=== PATIENT | male | born 1985 | race Two or more races ===

== ENCOUNTER 2017-11-15 18:46 | Inpatient (IN) | payer MEDICARE, OTHER ==
[2017-11-15] MEDS ORDERED: ONDANSETRON *ODT* 4 MG TABLET SL ONE (19:05)
--- NOTE | 2017-11-15 19:07 | PDOC ---
Rapid Medical Evaluation Chief Complaint: Pain Time Seen by Provider: 11/15/17 18:59 Medical Evaluation: 11/15/17 19:03 Pt presents for upper abdominal pain starting at 12 pm today. Unable to keep anything down. Exam: Pt appears uncomfortable. Epigastric tenderness Orders: Labs, Urine, IV, Zofran Pt to proceed to ED for further evaluation Discharge Disposition - Diagnosis Abdominal pain - Referrals - Patient Instructions - Post Discharge Activity
[2017-11-15] MEDS ORDERED: ONDANSETRON 4 MG/2 ML VIAL IVPUSH ONE (20:30)
[2017-11-15] MEDS ORDERED: SODIUM CHLORIDE 1,000 ML IV STA ×2 (20:30→21:40)
[2017-11-15] MEDS ORDERED: ACETAMINOPHEN 1000 MG/100 ML VIAL (NON FORMULARY) IVPB ONE (20:30)
[2017-11-15] MEDS ORDERED: ACETAMINOPHEN INJECTION 100 ML IVPB ONE (20:41)
[2017-11-15 20:49] LABS: BASO % 0.5 % (0-2.0); EOS % 0.4 % (0-4.5); HEMATOCRIT 41.6 % (35.4-49); HEMOGLOBIN 14.1 GM/dL (11.7-16.9); LYMPH % 9.9 % (8-40); MCH 28.4 pg (25.7-33.7); MEAN CELL VOLUME 83.4 fl (80-96); MEAN PLT VOLUME 8.7 fl (7.5-11.1); MONO % 4.7 % (3.8-10.2); NEUT % 84.5 % (42.8-82.8); PLATELET COUNT 236 K/MM3 (134-434); RBC 4.98 M/mm3 (4.00-5.60); RDW 13.5 % (11.9-15.9)
[2017-11-15] MEDS ORDERED: ONDANSETRON 4 MG/2 ML VIAL ONE (20:59)
--- NOTE | 2017-11-15 21:06 | PDOC ---
History of Present Illness - General History Source: Patient Exam Limitations: No Limitations - History of Present Illness Initial Comments: 11/15/17 21:20 The patient is a 32 year old male, with a significant past medical history of hypertension (lisinopril 15 mg), who presents to the emergency department with sharp, epigastric pain since 2PM. He states the pain is 10/10 with increase in severity now. He denies any exacerbating or alleviating factors to his abdominal pain. He states he has been vomiting after drinking or eating today. He reports his emesis is now clear/white since he stopped eating when the vomiting started. The patient denies chest pain, shortness of breath, headache and dizziness. The patient denies fever, chills, diarrhea and constipation. The patient denies dysuria, frequency, urgency and hematuria. Allergies: NKDA Past surgical history: none reported Social history: Pt denies illicit drug use <Denise Dowell - Last Filed: 11/16/17 00:20> - General History Source: Patient Exam Limitations: No Limitations <Susie Olsen - Last Filed: 11/16/17 03:43> - General Chief Complaint: Pain Stated Complaint: NAUSEA/VOMITING Time Seen by Provider: 11/15/17 18:59 Past History <Denise Dowell - Last Filed: 11/16/17 00:20> - Past Medical History COPD: No HTN: Yes - Suicide/Smoking/Psychosocial Hx Smoking History: Never smoked Have you smoked in the past 12 months: No Information on smoking cessation initiated: No Hx Alcohol Use: No Drug/Substance Use Hx: No Substance Use Type: None <Susie Olsen - Last Filed: 11/16/17 03:43> - Past Medical History Allergies/Adverse Reactions: Allergies Allergy/AdvReac Type Severity Reaction Status Date / Time No Known Allergies Allergy Verified 11/15/17 20:29 Home Medications: Ambulatory Orders Lisinopril 15 mg PO DAILY 11/15/17 Review of Systems - Review of Systems Comments:: 11/15/17 21:21 CONSTITUTIONAL: Absent: fever, chills, fatigue EYES: Absent: visual changes ENT: Absent: ear pain, sore throat CARDIOVASCULAR: Absent: chest pain, palpitations RESPIRATORY: Absent: cough, SOB GASTROINTESTINAL: (+) epigastric abdominal pain, nausea, vomiting, Absent: constipation, diarrhea GENITOURINARY: Absent: dysuria, frequency, hematuria MUSCULOSKELETAL: Absent: back pain, arthralgia, myalgia SKIN: Absent: rash NEURO: Absent: headache <Denise Dowell - Last Filed: 11/16/17 00:20> *Physical Exam - Vital Signs Last Vital Signs Temp Pulse Resp BP Pulse Ox 98.0 F 76 18 157/95 100 11/15/17 19:02 11/15/17 19:02 11/15/17 19:02 11/15/17 19:02 11/15/17 19:02 - Physical Exam Comments: 11/15/17 21:21 GENERAL: The patient is in no acute distress. HEAD: Normal with no signs of trauma. EYES: PERRLA, EOMI, sclera anicteric, conjunctiva clear. ENT: Ears normal, nares patent, oropharynx clear without exudates. Moist mucous membranes. NECK: Normal range of motion, supple without lymphadenopathy, JVD, or masses. LUNGS: Breath sounds equal, clear to auscultation bilaterally. No wheezes, and no crackles. HEART:Regular rate and rhythm, normal S1 and S2 without murmur, rub or gallop. ABDOMEN: (+) epigastric tenderness. Soft, normoactive bowel sounds. No guarding , no rebound. No masses palpable. EXTREMITIES: Normal range of motion, no edema. No clubbing or cyanosis. No erythema, or tenderness. NEUROLOGICAL: Cranial nerves II through XII grossly intact. Normal speech. No focal neurological deficits. MUSCULOSKELETAL: Back non-tender to palpation, no CVA tenderness SKIN: Warm, Dry, normal turgor, no rashes or lesions noted. <Denise Dowell - Last Filed: 11/16/17 00:20> - Vital Signs Last Vital Signs Temp Pulse Resp BP Pulse Ox 98.0 F 76 18 157/95 100 11/15/17 19:02 11/15/17 19:02 11/15/17 19:02 11/15/17 19:02 11/15/17 19:02 <Susie Olsen - Last Filed: 11/16/17 03:43> ED Treatment Course - LABORATORY CBC & Chemistry Diagram: 11/15/17 20:35 11/15/17 20:35 - ADDITIONAL ORDERS Additional order review: Laboratory Results 11/15/17 11/15/17 11/15/17 20:35 20:35 20:35 PT with INR 11.10 INR 0.98 Sodium 138 Potassium 4.4 Chloride 103 Carbon Dioxide 25 Anion Gap 10 BUN 12 Creatinine 1.2 Creat Clearance w eGFR > 60 Random Glucose 121 H Calcium 9.6 Total Bilirubin 0.5 AST 21 ALT 27 Alkaline Phosphatase 56 Total Protein 8.2 Albumin 4.8 Lipase 117 11/15/17 20:35 RBC 4.98 MCV 83.4 MCHC 34.0 RDW 13.5 MPV 8.7 Neutrophils % 84.5 H Lymphocytes % 9.9 Monocytes % 4.7 Eosinophils % 0.4 Basophils % 0.5 - RADIOLOGY Radiograph Interpretation: EXAM: CT abdomen and pelvis with IV contrast. Clinical indication: Severe abdominal pain. Findings: Visualized portions of the lower thorax are within normal limits. There is no free intra-abdominal gas or fluid. The liver, gallbladder, adrenals, pancreas, and spleen are normal. There is no hydronephrosis or renal calculi bilaterally. The bilateral kidneys are normal. There are no enlarged abdominal or pelvic lymph nodes, by size criteria. The urinary bladder is not overly distended, but grossly unremarkable. There is a phlebolith at the origin of the appendix and within the midportion of the appendix. Thereis some subtle periappendiceal inflammatory changes suggesting very early acute uncomplicated appendicitis. There is some mild bowel wall thickening involving the gastric antrum extending into the first portion of the duodenum which could represent some distal gastritis/proximal duodenitis. The remainder of the bowel is unremarkable. The visualized bony structures are within normal limits for the patient's age. Impression: 1. Findings suggest very early uncomplicated acute appendicitis, as described above. 2. Mild circumferential bowel wall thickening involving the gastric antrum extending into the first portion of the duodenum, which could represent some distal gastritis/proximal duodenitis. Clinical correlation is recommended. 3. Otherwise, unremarkable CT of the abdomen and pelvis. Kal Herr MD 11/15/2017 23:03 EST - Medications Given in the ED: ED Medications Discontinued Medications Generic Name Dose Route Start Last Admin Trade Name Freq PRN Reason Stop Dose Admin Acetaminophen 1,000 mg 11/15/17 20:30 11/15/17 20:49 Ofirmev Injection - IVPB 11/15/17 20:31 1,000 mg ONCE ONE Administration Ondansetron HCl 4 mg 11/15/17 20:30 11/15/17 21:02 Zofran Injection IVPUSH 11/15/17 20:31 4 mg ONCE ONE Administration <DelmerDenise - Last Filed: 11/16/17 00:20> - LABORATORY CBC & Chemistry Diagram: 11/15/17 20:35 11/15/17 20:35 - ADDITIONAL ORDERS Additional order review: 11/15/17 20:35 RBC 4.98 MCV 83.4 MCHC 34.0 RDW 13.5 MPV 8.7 Neutrophils % 84.5 H Lymphocytes % 9.9 Monocytes % 4.7 Eosinophils % 0.4 Basophils % 0.5 - Medications Given in the ED: ED Medications Discontinued Medications Generic Name Dose Route Start Last Admin Trade Name Harika PRN Reason Stop Dose Admin Acetaminophen 1,000 mg 11/15/17 20:30 11/15/17 20:49 Ofirmev Injection - IVPB 11/15/17 20:31 1,000 mg ONCE ONE Administration Ondansetron HCl 4 mg 11/15/17 20:30 11/15/17 21:02 Zofran Injection IVPUSH 11/15/17 20:31 4 mg ONCE ONE Administration <Susie Olsen - Last Filed: 11/16/17 03:43> Medical Decision Making - Medical Decision Making 32 yo M presenting to the ER with a complaint of severe epigastric pain No prior episodes like this No nausea or vomiting No diarrhea No prior abdominal surgeries DD: Gastritis, pancreatitis, SBO, Appendicitis EKG: Twelve-lead EKG was performed and reviewed by me. There is normal sinus rhythm with a normal rate of 60 bpm. The axis is normal. The intervals are normal. There are no ST or T wave abnormalities. Impression: Normal twelve-lead EKG 11/15/17 21:06 Laboratory Tests 11/15/17 20:35 WBC 8.0 Hgb 14.1 Hct 41.6 Plt Count 236 11/15/17 21:15 Laboratory Tests 11/15/17 11/15/17 11/15/17 20:35 20:35 20:35 INR 0.98 Sodium 138 Potassium 4.4 Chloride 103 Carbon Dioxide 25 Anion Gap 10 BUN 12 Creatinine 1.2 Random Glucose 121 H Lipase 117 11/16/17 00:28 CT demonstrates very early uncomplicated acute appendicitis 11/16/17 00:[address] Pacheco Will admit to hospitalist Will give Zosyn Clinical Impression: Acute Appendicitis, initial presentation 11/16/17 03:41 11/16/17 03:41 <Susie Olsen - Last Filed: 11/16/17 03:43> *DC/Admit/Observation/Transfer - Attestations Scribe Attestion: 11/15/17 21:22 Documentation prepared by Denise Dowell, acting as biomedical engineering professor for Susie Olsen MD <Denise Dowell - Last Filed: 11/16/17 00:20> - Discharge Dispostion Decision to Admit order: Yes <Susie Olsen - Last Filed: 11/16/17 03:43> Diagnosis at time of Disposition: Acute appendicitis Qualifiers: Acute appendicitis type: unspecified acute appendicitis type Qualified Code(s) : K35.80 - Unspecified acute appendicitis - Discharge Dispostion Condition at time of disposition: Stable
[2017-11-15 21:07] LABS: INR 0.98 (0.83-1.09); PROTHROMBIN TIME (PATIENT) 11.1 SEC (9.7-13.0)
[2017-11-15 21:10] LABS: ALBUMIN 4.8 g/dl (3.4-5.0); ALK PHOS 56 U/L (45-117); ANION GAP 10 MMOL/L (8-16); BILIRUBIN,TOTAL 0.5 mg/dL (0.2-1.0); BLOOD UREA NITROGEN 12 mg/dL (7-18); CALCIUM 9.6 mg/dL (8.5-10.1); CHLORIDE 103 mmol/L (98-107); CO2 25 mmol/L (21-32); CREATININE 1.2 mg/dL (0.7-1.3); GLUCOSE,RANDOM 121 mg/dL (74-106); SGPT/ALT 27 U/L (12-78); SODIUM 138 mmol/L (136-145); TOT PROT 8.2 g/dl (6.4-8.2)
[2017-11-15 21:13] LABS: POTASSIUM 4.4 mmol/L (3.5-5.1); SGOT/AST 21 U/L (15-37)
[2017-11-15] MEDS ORDERED: morphine CARPU-JECT 4 MG/1 ML DISP.SYRIN IVPUSH ONE ×2 (21:16→22:27)
[2017-11-15] MEDS ORDERED: FAMOTIDINE 20 MG/50 ML IVPB 20 MG/50 ML MG IVPB ONE ×2 (21:16→21:30)
[2017-11-15] MEDS ORDERED: DICYCLOMINE HCL 10 MG CAPSULE PO ONE (21:16)
[2017-11-15] MEDS ORDERED: morphine SULFATE 4 MG/ML VIAL ONE (21:30)
[2017-11-15] MEDS ORDERED: DICYCLOMINE HCL 10 MG CAPSULE ONE (21:30)
[2017-11-15] MEDS ORDERED: METOCLOPRAMIDE HCL INJECTION 10 MG/2 ML VIAL IVPUSH ONE (21:40)
[2017-11-15] MEDS ORDERED: METOCLOPRAMIDE HCL INJECTION 10 MG/2 ML VIAL ONE (22:36)
[2017-11-15] MEDS ORDERED: MORPHINE SULFATE 2 MG/ML VIAL ONE (22:37)
[2017-11-15 23:40] LABS: URINE APPEARANCE CLEAR; URINE BILIRUBIN NEGATIVE (<2.0 mg/dL); URINE COLOR YELLOW; URINE GLUCOSE (UA) NEGATIVE (NEGATIVE); URINE KETONE 2+ (NEGATIVE); URINE LEUK ESTERASE NEGATIVE (NEGATIVE); URINE NITRITE NEGATIVE (NEGATIVE); URINE PROTEIN NEGATIVE (NEGATIVE); URINE UROBILINOGEN NEGATIVE mg/dL (0.2-1.0)
[2017-11-16] MEDS ORDERED: PIPERACILLIN/TAZOB 4.5 GM 4.5 GM in DEXTROSE 5%-WATER 100 ML IVPB ONE (00:28)
[2017-11-16] MEDS ORDERED: PIPERACILLIN/TAZOB 4.5 GM 4.5 GM/100 ML BAG IVPB ONE (01:06)
--- NOTE | 2017-11-16 02:11 | PN ---
Teaching Attending Note Name of Resident: Gladis Singer ATTENDING PHYSICIAN STATEMENT I saw and evaluated the patient. I reviewed the resident's note and discussed the case with the resident. I agree with the resident's findings and plan as documented. SUBJECTIVE: Patient is a 32 year old man, with a medical history of hypertension and tobacco use, who presents to the ER with sharp, epigastric pain since 2PM. He states the pain is 10/10 with increase in severity now. He denies any exacerbating or alleviating factors to his abdominal pain. He states he has been vomiting after drinking or eating today. He reports his emesis is now clear /white since he stopped eating when the vomiting started. OBJECTIVE: Alert Vital Signs Period Temp Pulse Resp BP Sys/Nicole Pulse Ox Last 24 Hr 98.0 F 76 18 157/95 100 HEENT: No Jaundice, eye redness or discharge, PERRLA, EOMI. Normocephalic, atraumatic. External ears are normal and hearing is grossly intact. No nasal discharge. Neck: Supple, nontender. No palpable adenopathy or thyromegaly. No JVD Chest: Good effort. Clear to auscultation and percussion. Heart: Regular. No S3, rub or murmur Abdomen: Not distended, soft, lower abdominal tenderness and no HSM. No rebound or guarding. Normoactive bowel sounds. Ext: Peripheral pulses intact. No leg edema. Skin: Warm and dry. No petechiae, rash or ecchymosis. Neuro: Alert. Oriented x3. CN 2-12 grossly intact. Sensation grossly intact in all four extremities and DTR are symmetric. Current Medications Generic Name Dose Route Start Last Admin Trade Name Harika PRN Reason Stop Dose Admin Nicotine 21 mg 11/16/17 10:00 Nicoderm Patch - TD DAILY RAMON Home Medications Medication Instructions Recorded Lisinopril 15 mg PO DAILY 11/15/17 Abnormal Lab Results 11/15/17 11/15/17 11/15/17 20:35 20:35 22:00 Neutrophils % 84.5 H Random Glucose 121 H Urine Ketones 2+ H ASSESSMENT AND PLAN: 1. Appendicitis - CT scan findings consistent with appendicitis. Getting Zosyn IV and morphine for pain control pending surgery. Surgery consulted. Will adjust BP medications to Lisinopril 10 mg po BID and HCTZ 12.5 mg po qd. Urged to reduce dietary salt intake, execise and loose weight. Get HbA1c. 2. Tobacco Use We will provide patient all the necessary assistance to facilitate smoking cessation and prescribe Nicotine patch. 3. DVT prophylaxis - Lovenox 40 mg SQ q 24 hours. 4. Advance directives - Full code
--- NOTE | 2017-11-16 02:44 | HP ---
CHIEF COMPLAINT:abdominal and epigastric pain PCP: HISTORY OF PRESENT ILLNESS: 32 y/o male with PMH of HTN presents to the ED with diffuse abdominal and epigastric pain. Patient states the pain started around 12 and it is 10/10. He has had multiple episodes of vomiting however not having any diarrhea nor does he have any fevers. He did not try to take anything for pain. ER course was notable for: (1)CT ab/pelvos showed phlebolith at oriign of appendix and midportion of appendix suggesting early acute appendicitis (2) pt received zosyn for abx coverage and morphine for pain (3) Recent Travel: patient recently came back from [place] PAST MEDICAL HISTORY: HTN PAST SURGICAL HISTORY: none Social History: Smokinppd X12 years Alcohol:social drinker 1-2 drinks on weekend Drugs: none Family History: Allergies No Known Allergies Allergy (Verified 11/15/17 20:29) HOME MEDICATIONS: Home Medications Medication Instructions Recorded Lisinopril 15 mg PO DAILY 11/15/17 REVIEW OF SYSTEMS CONSTITUTIONAL: Absent: fever, chills, diaphoresis, generalized weakness, malaise, loss of appetite, weight change HEENT: Absent: rhinorrhea, nasal congestion, throat pain, throat swelling, difficulty swallowing, mouth swelling, ear pain, eye pain, visual changes CARDIOVASCULAR: Absent: chest pain, syncope, palpitations, irregular heart rate, lightheadedness , peripheral edema RESPIRATORY: Absent: cough, shortness of breath, dyspnea with exertion, orthopnea, wheezing, stridor, hemoptysis GASTROINTESTINAL: Present:nausea, vomiting,abdominal pain Absent: abdominal distension, diarrhea , constipation, melena, hematochezia GENITOURINARY: Absent: dysuria, frequency, urgency, hesitancy, hematuria, flank pain, genital pain MUSCULOSKELETAL: Absent: myalgia, arthralgia, joint swelling, back pain, neck pain SKIN: Absent: rash, itching, pallor HEMATOLOGIC/IMMUNOLOGIC: Absent: easy bleeding, easy bruising, lymphadenopathy, frequent infections ENDOCRINE: Absent: unexplained weight gain, unexplained weight loss, heat intolerance, cold intolerance NEUROLOGIC: Absent: headache, focal weakness or paresthesias, dizziness, unsteady gait, seizure, mental status changes, bladder or bowel incontinence PSYCHIATRIC: Absent: anxiety, depression, suicidal or homicidal ideation, hallucinations. PHYSICAL EXAMINATION Vital Signs - 24 hr 11/15/17 19:02 Temperature 98.0 F Pulse Rate 76 Respiratory 18 Rate Blood Pressure 157/95 O2 Sat by Pulse 100 Oximetry (%) GENERAL: Awake, alert, and fully oriented, in no acute distress. NECK: no JVD LUNGS: Breath sounds equal, clear to auscultation bilaterally. No wheezes, and no crackles. No accessory muscle use. HEART: Regular rate and rhythm, normal S1 and S2 without murmur, rub or gallop. ABDOMEN: Soft, slight tenderness in epigastric region MUSCULOSKELETAL: Normal range of motion at all joints. No bony deformities or tenderness. No CVA tenderness. EXTREMITIES: warm; well-perfused, no clubbing/cyanosis/edema NEUROLOGICAL: Cranial nerves II-XII intact. Normal speech. Normal gait. PSYCHIATRIC: Cooperative. Good eye contact. Appropriate mood and affect. SKIN: Warm, dry, normal turgor, no rashes or lesions noted, normal capillary refill. Laboratory Results - last 24 hr 11/15/17 11/15/17 11/15/17 20:35 20:35 20:35 WBC 8.0 RBC 4.98 Hgb 14.1 Hct 41.6 MCV 83.4 MCH 28.4 MCHC 34.0 RDW 13.5 Plt Count 236 MPV 8.7 Absolute Neuts (auto) 6.7 Neutrophils % 84.5 H Lymphocytes % 9.9 Monocytes % 4.7 Eosinophils % 0.4 Basophils % 0.5 Nucleated RBC % 0 PT with INR 11.10 INR 0.98 Sodium 138 Potassium 4.4 Chloride 103 Carbon Dioxide 25 Anion Gap 10 BUN 12 Creatinine 1.2 Creat Clearance w eGFR > 60 Random Glucose 121 H Calcium 9.6 Total Bilirubin 0.5 AST 21 ALT 27 Alkaline Phosphatase 56 Total Protein 8.2 Albumin 4.8 Lipase Urine Color Urine Appearance Urine pH Ur Specific [place] Urine Protein Urine Glucose (UA) Urine Ketones Urine Blood Urine Nitrite Urine Bilirubin Urine Urobilinogen Ur Leukocyte Esterase 11/15/17 11/15/17 20:35 22:00 WBC RBC Hgb Hct MCV MCH MCHC RDW Plt Count MPV Absolute Neuts (auto) Neutrophils % Lymphocytes % Monocytes % Eosinophils % Basophils % Nucleated RBC % PT with INR INR Sodium Potassium Chloride Carbon Dioxide Anion Gap BUN Creatinine Creat Clearance w eGFR Random Glucose Calcium Total Bilirubin AST ALT Alkaline Phosphatase Total Protein Albumin Lipase 117 Urine Color Yellow Urine Appearance Clear Urine pH 6.0 Ur Specific [place] 1.029 Urine Protein Negative Urine Glucose (UA) Negative Urine Ketones 2+ H Urine Blood Negative Urine Nitrite Negative Urine Bilirubin Negative Urine Urobilinogen Negative Ur Leukocyte Esterase Negative ASSESSMENT/PLAN: 32 y/o male with PMH of HTN presents to the ED with abdominal and epigastric pain found to have early acute appendicitis on CT. #1: Appendicitis: -c/w zosyn for empiric abx coverage -morphine for pain control -surgery has been consulted -NPO for possible surgery? #2: HTN -lisinopril 10mg BID -HCTZ 12.5 daily #3: Smoking Cessation -nicotine patch Problem List - Problem (1) Acute appendicitis Code(s): K35.80 - UNSPECIFIED ACUTE APPENDICITIS Qualifiers: Acute appendicitis type: unspecified acute appendicitis type Qualified Code (s): K35.80 - Unspecified acute appendicitis Visit type - Emergency Visit Emergency Visit: Yes Care time: The patient presented to the Emergency Department on the above date and was hospitalized for further evaluation of their emergent condition. - New Patient This patient is new to me today: Yes Date on this admission: 11/16/17 - Critical Care Critical Care patient: No Hospitalist Screening - Colonoscopy Questionnaire Colonoscopy Questionnaire: Colonoscopy Questionnaire - Patient: 50 - 75 years old and never had a screening colonoscopy: Unknown History of colon or rectal polyps, or CA: Unknown History of IBD, Crohn's disease or UC: Unknown History of abdominal radiation therapy as a child: Unknown - Relative: 1 with colon or rectal CA, or polyps at age 60 or younger: Unknown Colon or rectal CA diagnosed at age 45 or younger: Unknown Multiple relatives with colon or rectal CA: Unknown - Outcome: Screening Result: Negative Screen
[2017-11-16] MEDS ORDERED: PIPERACILLIN/TAZOB 3.375 GM 3.375 GM in DEXTROSE 5%-WATER - 50 ML IVPB ONE (07:00)
[2017-11-16 07:05] LABS: BASO % 0.3 % (0-2.0); EOS % 0.4 % (0-4.5); HEMATOCRIT 39.2 % (35.4-49); HEMOGLOBIN 13.1 GM/dL (11.7-16.9); LYMPH % 18.9 % (8-40); MCH 27.6 pg (25.7-33.7); MCHC 33.3 g/dl (32.0-35.9); MEAN CELL VOLUME 83.1 fl (80-96); MEAN PLT VOLUME 8.6 fl (7.5-11.1); MONO % 10.5 % (3.8-10.2); NEUT % 69.9 % (42.8-82.8); PLATELET COUNT 186 K/MM3 (134-434); RBC 4.72 M/mm3 (4.00-5.60); RDW 13.4 % (11.9-15.9); WHITE BLOOD COUNT 8.4 K/mm3 (4.0-10.0)
[2017-11-16 07:17] LABS: ANION GAP 4 MMOL/L (8-16); BILIRUBIN,TOTAL 0.5 mg/dL (0.2-1.0); BLOOD UREA NITROGEN 7 mg/dL (7-18); CALCIUM 7.5 mg/dL (8.5-10.1); CHLORIDE 109 mmol/L (98-107); CO2 28 mmol/L (21-32); CREATININE 1.1 mg/dL (0.7-1.3); GLUCOSE,RANDOM 100 mg/dL (74-106); MAGNESIUM 2.1 mg/dL (1.8-2.4); PHOSPHOROUS 3.7 mg/dL (2.5-4.9); POTASSIUM 4.6 mmol/L (3.5-5.1); SGOT/AST 12 U/L (15-37); SGPT/ALT 19 U/L (12-78); SODIUM 141 mmol/L (136-145)
[2017-11-16 07:18] LABS: ALK PHOS 43 U/L (45-117); TOT PROT 5.8 g/dl (6.4-8.2)
[2017-11-16] MEDS ORDERED: SODIUM CHLORIDE 1,000 ML IV ONE (07:19)
[2017-11-16] MEDS ORDERED: PIPERACILLIN/TAZOB 3.375 GM 3.375 GM/50 ML BAG IVPB ONE (07:21)
--- NOTE | 2017-11-16 09:59 | CON.ID ---
Consult Consult Specialty:: infectious diseases Referred by:: Reason for Consultation:: appendicitis - History of Present Illness Chief Complaint: abd pain History of Present Illness: This young patient with history of htn coming to the the hospital for abd pain mainly on the right side Patient states the pain started around 12 and it is 10/10. He has had multiple episodes of vomiting however not having any diarrhea nor does he have any fevers. He did not try to take anything for pain. patient was worked up and imaging studies were done and patient was found to ahve appendicitis and is being taken for surgery thgis morning patient mentions that his pain is better now currently patient is stable - History Source History Provided By: Patient Limitations to Obtaining History: No Limitations - Alcohol/Substance Use Hx Alcohol Use: No - Smoking History Smoking history: Never smoked Have you smoked in the past 12 months: No Home Medications - Allergies Allergies/Adverse Reactions: Allergies Allergy/AdvReac Type Severity Reaction Status Date / Time No Known Allergies Allergy Verified 11/15/17 20:29 - Home Medications Home Medications: Ambulatory Orders Lisinopril 15 mg PO DAILY 11/15/17 Review of Systems - Review of Systems Constitutional: reports: No Symptoms Eyes: reports: No Symptoms HENT: reports: No Symptoms Neck: reports: No Symptoms Cardiovascular: reports: No Symptoms Respiratory: reports: No Symptoms Gastrointestinal: reports: Abdominal Pain, Nausea, Vomiting Genitourinary: reports: No Symptoms Musculoskeletal: reports: No Symptoms Integumentary: reports: No Symptoms Neurological: reports: No Symptoms Endocrine: reports: No Symptoms Hematology/Lymphatic: reports: No Symptoms Psychiatric: reports: No Symptoms Physical Exam Vital Signs: Vital Signs Temperature 98 F 11/16/17 06:00 Pulse Rate 67 11/16/17 08:26 Respiratory Rate 20 11/16/17 08:26 Blood Pressure 124/79 11/16/17 08:26 O2 Sat by Pulse Oximetry (%) 100 11/16/17 08:26 Constitutional: Yes: Well Nourished, No Distress, Calm Cardiovascular: Yes: Regular Rate and Rhythm Respiratory: Yes: Regular, CTA Bilaterally Gastrointestinal: Yes: Normal Bowel Sounds, Soft Musculoskeletal: Yes: WNL Extremities: Yes: WNL Neurological: Yes: Alert, Oriented Psychiatric: Yes: Alert, Oriented Labs: CBC, BMP 11/16/17 06:30 11/16/17 06:30 Imaging - Results Chest X-ray: Report Reviewed, Image Reviewed Cat Scan: Report Reviewed, Image Reviewed Assessment/Plan Problem List - Problem (1) Acute appendicitis Code(s): K35.80 - UNSPECIFIED ACUTE APPENDICITIS Qualifiers: Acute appendicitis type: unspecified acute appendicitis type Qualified Code (s): K35.80 - Unspecified acute appendicitis 2 htn plan we will continue zosyn post op will see the findings and then decide further plan continue htn meds rest as per the teams and surgical team
[2017-11-16] MEDS ORDERED: ENOXAPARIN NA (PORCINE) 40 MG/0.4 ML DISP.SYRIN SQ SCH (10:00)
[2017-11-16] MEDS ORDERED: HYDROCHLOROTHIAZIDE 12.5 MG CAPSULE (FP) PO SCH (10:00)
[2017-11-16] MEDS ORDERED: NICOTINE 21 MG/24 HOURS TOPICAL PATCH TD SCH (10:00)
[2017-11-16] MEDS ORDERED: LISINOPRIL 10 MG TABLET (FP) PO SCH (10:00)
[2017-11-16] MEDS ORDERED: PANTOPRAZOLE SODIUM 40 MG VIAL IVPUSH SCH (10:00)
--- NOTE | 2017-11-16 10:30 | EKG ---
Test Reason : Blood Pressure : / mmHG Vent. Rate : 060 BPM Atrial Rate : 060 BPM P-R Int : 144 ms QRS Dur : 102 ms QT Int : 388 ms P-R-T Axes : 069 072 045 degrees QTc Int : 388 ms NORMAL SINUS RHYTHM NORMAL ECG NO PREVIOUS ECGS AVAILABLE Confirmed by AGUSTO BERRIOS, LIZ ([id number]) on 11/16/2017 10:29:34 AM Referred By: Confirmed By:LIZ LIZ MD
--- NOTE | 2017-11-16 10:40 | CONSULT ---
- Consultation REQUESTING PROVIDER: Arianna BERRIOS CONSULT REQUEST: We have been asked to surgically evaluate this patient for ( specify). PCP:Ayleen Keller MD HISTORY OF PRESENT ILLNESS:24-36 hours of epigastric to RLQ pain associated w/n/ v;he has no other GI/ c/o; he came to the ER FOR EVALUATION; pain is sharp and unrelenting; no other hx. PMHx: hypertension PSHx: none Home Medications Medication Instructions Recorded Lisinopril 15 mg PO DAILY 11/15/17 Allergies Allergy/AdvReac Type Severity Reaction Status Date / Time No Known Allergies Allergy Verified 11/15/17 20:29 PHYSICAL EXAM: GENERAL: Awake, alert, and fully oriented, in no acute distress. HEAD: Normal with no signs of trauma. EYES: sclera anicteric, conjunctiva clear. NECK: Normal ROM, supple without lymphadenopathy, JVD, or masses. ABDOMEN: Soft, tender RLQ over McBurneys point; not distended, normoactive bowel sounds, no guarding, no rebound, no masses. No organomegaly. No hernias; psoas and obturators and Rovsings signs are present. MUSCULOSKELETAL: Normal ROM at all joints. No bony deformities or tenderness. No CVA tenderness. UPPER EXTREMITIES: 2+ pulses, warm, well-perfused. No cyanosis. Cap refill <2 seconds. No peripheral edema. LOWER EXTREMITIES: 2+ pulses, warm, well-perfused. No calf tenderness. No peripheral edema. NEUROLOGICAL: Normal speech, gait not observed. PSYCH: Cooperative. Good eye contact. Appropriate mood and affect. SKIN: Warm, dry, normal turgor, no rashes or lesions noted. Vital Signs Temperature 98 F 11/16/17 06:00 Pulse Rate 67 11/16/17 08:26 Respiratory Rate 20 11/16/17 08:26 Blood Pressure 124/79 11/16/17 08:26 O2 Sat by Pulse Oximetry (%) 100 11/16/17 08:26 Lab Results WBC 8.4 K/mm3 (4.0-10.0) 11/16/17 06:30 RBC 4.72 M/mm3 (4.00-5.60) 11/16/17 06:30 Hgb 13.1 GM/dL (11.7-16.9) 08/31/18 06:30 Hct 39.2 % (35.4-49) 11/16/17 06:30 MCV 83.1 fl (80-96) 11/16/17 06:30 MCHC 33.3 g/dl (32.0-35.9) 11/16/17 06:30 RDW 13.4 % (11.9-15.9) 11/16/17 06:30 Plt Count 186 K/MM3 (134-434) D 11/16/17 06:30 Sodium 141 mmol/L (136-145) 11/16/17 06:30 Potassium 4.6 mmol/L (3.5-5.1) 11/16/17 06:30 Chloride 109 mmol/L (98-107) H 11/16/17 06:30 Carbon Dioxide 28 mmol/L (21-32) 11/16/17 06:30 Anion Gap 4 MMOL/L (8-16) L 11/16/17 06:30 BUN 7 mg/dL (7-18) 11/16/17 06:30 Creatinine 1.1 mg/dL (0.7-1.3) 11/16/17 06:30 Random Glucose 100 mg/dL (74-106) 11/16/17 06:30 Calcium 7.5 mg/dL (8.5-10.1) L D 11/16/17 06:30 Blood Type O POSITIVE 11/16/17 08:18 Antibody Screen Negative 11/16/17 08:00 INR 0.98 (0.83-1.09) 11/15/17 20:35 CT a/p reviewed. IMP: acute appendicitis PLAN: Lap appendectomy possible open; r/b/t/a's d/w the patient; for OR today. Rafiq Pacheco MD FACS
[2017-11-16] MEDS ORDERED: PIPERACILLIN/TAZOB 3.375 GM 3.375 GM in DEXTROSE 5%-WATER - 50 ML IVPB SCH (11:00)
[2017-11-16] MEDS ORDERED: fentaNYL CITRATE 250 MCG/5 ML VIAL ONE (11:01)
[2017-11-16] MEDS ORDERED: LIDOCAINE HCL/PF 2% SDV 5ML VIAL ONE (11:01)
[2017-11-16] MEDS ORDERED: ROCURONIUM BROMIDE 50 MG/5 ML VIAL ONE (11:01)
[2017-11-16] MEDS ORDERED: LIDOCAINE HCL 2% JELLY (5 ML/TUBE) ONE (11:02)
[2017-11-16] MEDS ORDERED: MIDAZOLAM HCL 2 MG/2 ML SINGLE DOSE VIAL ONE (11:02)
[2017-11-16] MEDS ORDERED: PROPOFOL 20 ML ONE ×2 (11:02)
[2017-11-16 11:18] VITALS: BMI 28.0
[2017-11-16] MEDS ORDERED: PIPERACILLIN/TAZOBACTAM 3.375 GM VIAL IVPB ONE (11:39)
[2017-11-16] MEDS ORDERED: SEVOFLURANE 250 ML BTL ONE (11:40)
[2017-11-16] MEDS ORDERED: DEXAMETHASONE SOD PHOSPHATE 4 MG/1 ML VIAL ONE (11:49)
[2017-11-16] MEDS ORDERED: BUPIVACAINE HCL/PF 0.5% (5MG/ML) 10 ML VIAL IJ ONE (11:57)
[2017-11-16] MEDS ORDERED: GLYCOPYRROLATE 0.2 MG/1 ML VIAL ONE (12:13)
[2017-11-16] MEDS ORDERED: NEOSTIGMINE METHYLSULFATE 0.5 MG/ML - 10 ML MDV ONE (12:13)
--- NOTE | 2017-11-16 12:29 | OP ---
Operative Note - Note: Operative Date: 11/16/17 Pre-Operative Diagnosis: acute appendicitis Operation: laparoscopic appendectomy Findings: acute non perforated appendicitis Post-Operative Diagnosis: Same as Pre-op Surgeon: Rafiq Pacheco Substance Abuse Services Director: Evelin Suazo Anesthesiologist/CLOTH CUTTING INSPECTOR: Cristina Meza Anesthesia: General Specimens Removed: appendix Estimated Blood Loss (mls): 5
[2017-11-16] MEDS ORDERED: ACETAMINOPHEN 325 MG TABLET (FP) PO PRN ×2 (12:53→18:37)
[2017-11-16] MEDS ORDERED: oxyCODONE HCL 5 MG TABLET PO PRN ×2 (12:54)
[2017-11-16] MEDS ORDERED: KETOROLAC TROMETHAMINE 30 MG/1 ML VIAL IVPUSH PRN ×2 (12:55→18:37)
--- NOTE | 2017-11-16 13:28 | SURG ---
Surgery Director Trial Note Director Trial: Evelin Suazo PA-C Date of Service: 11/16/17 Diagnosis: acute appendicitis Procedure: laparoscopic appendectomy I was present for the entirety of the operative procedure. For further detail, please refer to operative report. Visit type - Case Type Case Type: ED Admission - Emergency Emergency Visit: Yes ED Registration Date: 11/16/17 Care time: The patient presented to the Emergency Department on the above date and was hospitalized for further evaluation of their emergent condition. - New patient This patient is new to me today: Yes Date on this admission: 11/16/17
[2017-11-16] MEDS: NICOTINE 21 MG/24 HOURS TOPICAL PATCH TD SCH (16:53)
--- NOTE | 2017-11-16 16:54 | PN ---
Physical Exam: SUBJECTIVE: Patient seen and examined this AM. He says that his pain has improved greatly with the pain medication. He is not currently nauseas or vomiting, though he says he was given anti nausea medication and has not eaten. He says he vomited non bloody vomitus approximately 10 times yesterday. He denies any fevers, chills, SOB, Chest pain, dysuria, diarrhea, constipation. Pt seen after surgery complaining of some abdominal pain. Has not had any flatus or bowel movement post op. OBJECTIVE: Vital Signs Period Temp Pulse Resp BP Sys/Nicole Pulse Ox Last 24 Hr 97.6 F-98.2 F 64-82 14-20 121-157/78-95 98-100 GENERAL: A&O, no acute distress HEAD: Normocephalic, atraumatic. EYES: PERRL, no scleral icterus EARS, NOSE, THROAT: oropharynx clear without exudates. Moist mucous membranes. NECK: supple without lymphadenopathy LUNGS: CTA b/l, no crackles or wheezes HEART: Regular rate and rhythm, normal S1 and S2 without murmur ABDOMEN: Soft, tender to palpation in right umbilical region and RLQ, no guarding or rebound. normoactive bowel sounds MUSCULOSKELETAL: No bony deformities or tenderness. EXTREMITIES: 2+ pulses, warm, well-perfused. No peripheral edema. NEUROLOGICAL: Cranial nerves II-XII grossly intact. Normal speech. PSYCHIATRIC: Cooperative. Good eye contact. Appropriate mood and affect. SKIN: Warm, dry, no rashes or lesions noted Laboratory Results - last 24 hr 11/15/17 11/15/17 11/15/17 20:35 20:35 20:35 WBC 8.0 RBC 4.98 Hgb 14.1 Hct 41.6 MCV 83.4 MCH 28.4 MCHC 34.0 RDW 13.5 Plt Count 236 MPV 8.7 Absolute Neuts (auto) 6.7 Neutrophils % 84.5 H Lymphocytes % 9.9 Monocytes % 4.7 Eosinophils % 0.4 Basophils % 0.5 Nucleated RBC % 0 PT with INR 11.10 INR 0.98 Sodium 138 Potassium 4.4 Chloride 103 Carbon Dioxide 25 Anion Gap 10 BUN 12 Creatinine 1.2 Creat Clearance w eGFR > 60 Random Glucose 121 H Hemoglobin A1c % Calcium 9.6 Phosphorus Magnesium Total Bilirubin 0.5 AST 21 ALT 27 Alkaline Phosphatase 56 Total Protein 8.2 Albumin 4.8 Lipase Urine Color Urine Appearance Urine pH Ur Specific [place] Urine Protein Urine Glucose (UA) Urine Ketones Urine Blood Urine Nitrite Urine Bilirubin Urine Urobilinogen Ur Leukocyte Esterase Blood Type Antibody Screen 11/15/17 11/15/17 11/16/17 20:35 22:00 06:30 WBC 8.4 RBC 4.72 Hgb 13.1 Hct 39.2 MCV 83.1 MCH 27.6 MCHC 33.3 RDW 13.4 Plt Count 186 D MPV 8.6 Absolute Neuts (auto) 5.9 Neutrophils % 69.9 Lymphocytes % 18.9 D Monocytes % 10.5 H D Eosinophils % 0.4 Basophils % 0.3 Nucleated RBC % 0 PT with INR INR Sodium Potassium Chloride Carbon Dioxide Anion Gap BUN Creatinine Creat Clearance w eGFR Random Glucose Hemoglobin A1c % Calcium Phosphorus Magnesium Total Bilirubin AST ALT Alkaline Phosphatase Total Protein Albumin Lipase 117 Urine Color Yellow Urine Appearance Clear Urine pH 6.0 Ur Specific [place] 1.029 Urine Protein Negative Urine Glucose (UA) Negative Urine Ketones 2+ H Urine Blood Negative Urine Nitrite Negative Urine Bilirubin Negative Urine Urobilinogen Negative Ur Leukocyte Esterase Negative Blood Type Antibody Screen 11/16/17 11/16/17 11/16/17 06:30 06:30 08:00 WBC RBC Hgb Hct MCV MCH MCHC RDW Plt Count MPV Absolute Neuts (auto) Neutrophils % Lymphocytes % Monocytes % Eosinophils % Basophils % Nucleated RBC % PT with INR INR Sodium 141 Potassium 4.6 Chloride 109 H Carbon Dioxide 28 Anion Gap 4 L BUN 7 Creatinine 1.1 Creat Clearance w eGFR > 60 Random Glucose 100 Hemoglobin A1c % 5.4 Calcium 7.5 L D Phosphorus 3.7 Magnesium 2.1 Total Bilirubin 0.5 AST 12 L D ALT 19 D Alkaline Phosphatase 43 L D Total Protein 5.8 L D Albumin 3.0 L Lipase Urine Color Urine Appearance Urine pH Ur Specific [place] Urine Protein Urine Glucose (UA) Urine Ketones Urine Blood Urine Nitrite Urine Bilirubin Urine Urobilinogen Ur Leukocyte Esterase Blood Type O POSITIVE Antibody Screen Negative 11/16/17 08:18 WBC RBC Hgb Hct MCV MCH MCHC RDW Plt Count MPV Absolute Neuts (auto) Neutrophils % Lymphocytes % Monocytes % Eosinophils % Basophils % Nucleated RBC % PT with INR INR Sodium Potassium Chloride Carbon Dioxide Anion Gap BUN Creatinine Creat Clearance w eGFR Random Glucose Hemoglobin A1c % Calcium Phosphorus Magnesium Total Bilirubin AST ALT Alkaline Phosphatase Total Protein Albumin Lipase Urine Color Urine Appearance Urine pH Ur Specific [place] Urine Protein Urine Glucose (UA) Urine Ketones Urine Blood Urine Nitrite Urine Bilirubin Urine Urobilinogen Ur Leukocyte Esterase Blood Type O POSITIVE Antibody Screen Active Medications Generic Name Dose Route Start Last Admin Trade Name Freq PRN Reason Stop Dose Admin Acetaminophen 650 mg 11/16/17 12:53 Tylenol - PO Q6H PRN PAIN LEVEL 1 - 3 Enoxaparin Sodium 40 mg 11/17/17 10:00 Lovenox - SQ DAILY [facility] Ketorolac Tromethamine 30 mg 11/16/17 12:55 Toradol Injection - IVPUSH 11/21/17 17:59 Q8H-IV PRN PAIN LEVEL 1-5 Lisinopril 15 mg 11/17/17 10:00 Prinivil PO DAILY [facility] Nicotine 21 mg 11/17/17 10:00 Nicoderm Patch - TD DAILY [facility] Oxycodone HCl 5 mg 11/16/17 12:54 Roxicodone - PO Q6H PRN PAIN LEVEL 1-5 Oxycodone HCl 10 mg 11/16/17 12:54 Roxicodone - PO Q6H PRN PAIN LEVEL 6-10 Pantoprazole Sodium 40 mg 11/17/17 10:00 Protonix Iv IVPUSH DAILY [facility] ASSESSMENT/PLAN: 32 yo male with PMH HTN admitted for abdominal pain with likely appendicitis on CT Acute nonruptured appendicitis -Pt with abdominal pain and intolerance of PO food or liquids since yesterday -CT abdomen noted for early appendicitis -Surgery consult appreciated Appendectomy POD 0 -Pt complaining of minimal post op pain that is controlled with his current management Tylenol 650 mg PO PRN pain 1-5 Toradol 30 mg IV PRN pain 6-10 -Incentive spirometry -Early ambulation -Will advance diet as tolerated GERD -Started on Protonix 40 mg IV Daily HTN -Blood pressure controlled on home med Lisinopril 15 mg PO Daily DVT Prophylaxis -Lovenox 40 mg SQ Daily FEN -Fluids: NS @ 75 cc/hr -Electrolytes: No electrolyte abnormalities, BMP in AM -Nutrition: Clear liquid diet Disposition Continue to monitor on Med/Surg, can most likely be discharged in the next 24- 48 hours Visit type - Emergency Visit Emergency Visit: Yes ED Registration Date: 11/16/17 Care time: The patient presented to the Emergency Department on the above date and was hospitalized for further evaluation of their emergent condition. - New Patient This patient is new to me today: Yes Date on this admission: 11/16/17 - Critical Care Critical Care patient: No
--- NOTE | 2017-11-16 18:42 | PN ---
Teaching Attending Note Name of Resident: Dakotah Du ATTENDING PHYSICIAN STATEMENT I saw and evaluated the patient. I reviewed the resident's note and discussed the case with the resident. I agree with the resident's findings and plan as documented with exceptions below. SUBJECTIVE: Patient seen and examined. some abdominal pain,just voided with no concerns. Wanting to smoke a cigarette. No other complaints. OBJECTIVE: Vital Signs Period Temp Pulse Resp BP Sys/Nicole Pulse Ox Last 24 Hr 97.6 F-98.3 F 64-82 14-20 121-157/75-95 98-100 Intake & Output 11/13/17 11/14/17 11/15/17 11/16/17 23:59 23:59 23:59 23:59 Intake Total 700 Output Total 305 Balance 395 Weight 200 lb 201 lb General; lying in bed in no acute distress Abdomen:Soft, mild RLQ tenderness, ND, no voluntary or involuntary guarding or rigidity, positive bowel sounds. Extremities; no edema Home Medications Medication Instructions Recorded Lisinopril 15 mg PO DAILY 11/15/17 Active Medications Acetaminophen (Tylenol -) 650 mg PO Q6H PRN PRN Reason: PAIN LEVEL 1-5 Enoxaparin Sodium (Lovenox -) 40 mg SQ DAILY [facility] Sodium Chloride (Normal Saline -) 1,000 mls @ 75 mls/hr IV ASDIR [facility] Ketorolac Tromethamine (Toradol Injection -) 30 mg IVPUSH Q8H-IV PRN PRN Reason: PAIN LEVEL 6-10 Stop: 11/21/17 17:59 Lisinopril (Prinivil) 15 mg PO DAILY [facility] Nicotine (Nicoderm Patch -) 21 mg TD DAILY [facility] Last Admin: 11/16/17 16:53 Dose: 21 mg Pantoprazole Sodium (Protonix Iv) 40 mg IVPUSH DAILY [facility] Laboratory Results - last 24 hr 11/15/17 11/15/17 11/15/17 20:35 20:35 20:35 WBC 8.0 RBC 4.98 Hgb 14.1 Hct 41.6 MCV 83.4 MCH 28.4 MCHC 34.0 RDW 13.5 Plt Count 236 MPV 8.7 Absolute Neuts (auto) 6.7 Neutrophils % 84.5 H Lymphocytes % 9.9 Monocytes % 4.7 Eosinophils % 0.4 Basophils % 0.5 Nucleated RBC % 0 PT with INR 11.10 INR 0.98 Sodium 138 Potassium 4.4 Chloride 103 Carbon Dioxide 25 Anion Gap 10 BUN 12 Creatinine 1.2 Creat Clearance w eGFR > 60 Random Glucose 121 H Hemoglobin A1c % Calcium 9.6 Phosphorus Magnesium Total Bilirubin 0.5 AST 21 ALT 27 Alkaline Phosphatase 56 Total Protein 8.2 Albumin 4.8 Lipase Urine Color Urine Appearance Urine pH Ur Specific [place] Urine Protein Urine Glucose (UA) Urine Ketones Urine Blood Urine Nitrite Urine Bilirubin Urine Urobilinogen Ur Leukocyte Esterase Blood Type Antibody Screen 11/15/17 11/15/17 11/16/17 20:35 22:00 06:30 WBC 8.4 RBC 4.72 Hgb 13.1 Hct 39.2 MCV 83.1 MCH 27.6 MCHC 33.3 RDW 13.4 Plt Count 186 D MPV 8.6 Absolute Neuts (auto) 5.9 Neutrophils % 69.9 Lymphocytes % 18.9 D Monocytes % 10.5 H D Eosinophils % 0.4 Basophils % 0.3 Nucleated RBC % 0 PT with INR INR Sodium Potassium Chloride Carbon Dioxide Anion Gap BUN Creatinine Creat Clearance w eGFR Random Glucose Hemoglobin A1c % Calcium Phosphorus Magnesium Total Bilirubin AST ALT Alkaline Phosphatase Total Protein Albumin Lipase 117 Urine Color Yellow Urine Appearance Clear Urine pH 6.0 Ur Specific [place] 1.029 Urine Protein Negative Urine Glucose (UA) Negative Urine Ketones 2+ H Urine Blood Negative Urine Nitrite Negative Urine Bilirubin Negative Urine Urobilinogen Negative Ur Leukocyte Esterase Negative Blood Type Antibody Screen 11/16/17 11/16/17 11/16/17 06:30 06:30 08:00 WBC RBC Hgb Hct MCV MCH MCHC RDW Plt Count MPV Absolute Neuts (auto) Neutrophils % Lymphocytes % Monocytes % Eosinophils % Basophils % Nucleated RBC % PT with INR INR Sodium 141 Potassium 4.6 Chloride 109 H Carbon Dioxide 28 Anion Gap 4 L BUN 7 Creatinine 1.1 Creat Clearance w eGFR > 60 Random Glucose 100 Hemoglobin A1c % 5.4 Calcium 7.5 L D Phosphorus 3.7 Magnesium 2.1 Total Bilirubin 0.5 AST 12 L D ALT 19 D Alkaline Phosphatase 43 L D Total Protein 5.8 L D Albumin 3.0 L Lipase Urine Color Urine Appearance Urine pH Ur Specific [place] Urine Protein Urine Glucose (UA) Urine Ketones Urine Blood Urine Nitrite Urine Bilirubin Urine Urobilinogen Ur Leukocyte Esterase Blood Type O POSITIVE Antibody Screen Negative 11/16/17 08:18 WBC RBC Hgb Hct MCV MCH MCHC RDW Plt Count MPV Absolute Neuts (auto) Neutrophils % Lymphocytes % Monocytes % Eosinophils % Basophils % Nucleated RBC % PT with INR INR Sodium Potassium Chloride Carbon Dioxide Anion Gap BUN Creatinine Creat Clearance w eGFR Random Glucose Hemoglobin A1c % Calcium Phosphorus Magnesium Total Bilirubin AST ALT Alkaline Phosphatase Total Protein Albumin Lipase Urine Color Urine Appearance Urine pH Ur Specific [place] Urine Protein Urine Glucose (UA) Urine Ketones Urine Blood Urine Nitrite Urine Bilirubin Urine Urobilinogen Ur Leukocyte Esterase Blood Type O POSITIVE Antibody Screen ASSESSMENT AND PLAN: 32 yom with HTN, nicotine dependence admitted with acute appendicitis. -Acute uncomplicated non perforated appendicitis s/p Lap appendectomy -HTN -Nicotine dependence Plan: Doing well post op. tylenol/toradol prn for pain. Patient encouraged to ambulate. Diet per surgery. Gentle hydration overnight. COntinue lisinopril 15 mg daily. nicotine patch. DVTPPX Dispo dc in 24 hours if tolerating diet and no new concerns. Plan discussed with patient in detail, all questions answered.
[2017-11-16] MEDS: SODIUM CHLORIDE 1,000 ML IV SCH (19:22)
[2017-11-16] MEDS ORDERED: oxyCODONE HCL 5 MG TABLET PO ONE (21:17)
[2017-11-16] MEDS ORDERED: morphine SULFATE 4 MG/ML VIAL IVPUSH PRN (22:37)
[2017-11-17] MEDS: SODIUM CHLORIDE 1,000 ML IV SCH (06:48)
--- NOTE | 2017-11-17 07:34 | PN ---
Physical Exam: SUBJECTIVE: Patient seen and examined this AM . States he is tolerating the liquid diet well and that he is passing flatus but denies any bowel movement post op. He is POD 1 s/p appendectomy OBJECTIVE: Vital Signs Period Temp Pulse Resp BP Sys/Nicole Pulse Ox Last 24 Hr 97.6 F-98.3 F 64-74 14-20 117-152/54-92 98-100 Laboratory Results - last 24 hr 11/16/17 11/16/17 11/16/17 06:30 06:30 08:00 Sodium 141 Potassium 4.6 Chloride 109 H Carbon Dioxide 28 Anion Gap 4 L BUN 7 Creatinine 1.1 Creat Clearance w eGFR > 60 Random Glucose 100 Hemoglobin A1c % 5.4 Calcium 7.5 L D Phosphorus 3.7 Magnesium 2.1 Total Bilirubin 0.5 AST 12 L D ALT 19 D Alkaline Phosphatase 43 L D Total Protein 5.8 L D Albumin 3.0 L Blood Type O POSITIVE Antibody Screen Negative 11/16/17 08:18 Sodium Potassium Chloride Carbon Dioxide Anion Gap BUN Creatinine Creat Clearance w eGFR Random Glucose Hemoglobin A1c % Calcium Phosphorus Magnesium Total Bilirubin AST ALT Alkaline Phosphatase Total Protein Albumin Blood Type O POSITIVE Antibody Screen Active Medications Generic Name Dose Route Start Last Admin Trade Name Freq PRN Reason Stop Dose Admin Acetaminophen 650 mg 11/16/17 18:37 Tylenol - PO Q6H PRN PAIN LEVEL 1-5 Enoxaparin Sodium 40 mg 11/17/17 10:00 Lovenox - SQ DAILY [facility] Sodium Chloride 1,000 mls @ 75 mls/hr 11/16/17 18:45 11/17/17 06:48 Normal Saline - IV 75 mls/hr ASDIR [facility] Administration Ketorolac Tromethamine 30 mg 11/16/17 18:37 11/16/17 20:06 Toradol Injection - IVPUSH 11/21/17 17:59 30 mg Q8H-IV PRN Administration PAIN LEVEL 6-10 Lisinopril 15 mg 11/17/17 10:00 Prinivil PO DAILY [facility] Morphine Sulfate 4 mg 11/16/17 22:37 11/16/17 23:03 Morphine Sulfate IVPUSH 4 mg Q4H PRN Administration PAIN LEVEL 6-10 Nicotine 21 mg 11/17/17 10:00 11/16/17 16:53 Nicoderm Patch - TD 21 mg DAILY [facility] Administration Pantoprazole Sodium 40 mg 11/17/17 10:00 Protonix Iv IVPUSH DAILY [facility] ASSESSMENT/PLAN:
[2017-11-17 07:40] VITALS: BP 116/64; PULSE 70; TEMP 98
[2017-11-17 07:54] LABS: HEMATOCRIT 34.3 % (35.4-49); HEMOGLOBIN 11.3 GM/dL (11.7-16.9); MCH 27.5 pg (25.7-33.7); MCHC 32.9 g/dl (32.0-35.9); MEAN CELL VOLUME 83.6 fl (80-96); MEAN PLT VOLUME 9.1 fl (7.5-11.1); PLATELET COUNT 147 K/MM3 (134-434); RDW 13.3 % (11.9-15.9); WHITE BLOOD COUNT 4.3 K/mm3 (4.0-10.0)
[2017-11-17 08:45] LABS: ANION GAP 7 MMOL/L (8-16); BLOOD UREA NITROGEN 7 mg/dL (7-18); CHLORIDE 108 mmol/L (98-107); CO2 26 mmol/L (21-32); CREATININE 0.9 mg/dL (0.7-1.3); GLUCOSE,RANDOM 86 mg/dL (74-106); POTASSIUM 4.2 mmol/L (3.5-5.1); SODIUM 141 mmol/L (136-145)
[2017-11-17] MEDS ORDERED: MORPHINE SULFATE 2 MG/ML VIAL IVPUSH PRN (09:15)
--- NOTE | 2017-11-17 09:18 | PN ---
Teaching Attending Note Name of Resident: Dakotah Du ATTENDING PHYSICIAN STATEMENT I saw and evaluated the patient. I reviewed the resident's note and discussed the case with the resident. I agree with the resident's findings and plan as documented with exceptions below. SUBJECTIVE: Patient seen and examined. abdominal pain but improved. No nausea, vomiting, wants to try solid diet. no bm but passing gas, voiding well. OBJECTIVE: Vital Signs Period Temp Pulse Resp BP Sys/Nicole Pulse Ox Last 24 Hr 97.6 F-98.6 F 64-97 14-20 116-152/54-92 98-100 Intake & Output 11/14/17 11/15/17 11/16/17 11/17/17 23:59 23:59 23:59 23:59 Intake Total 1900 900 Output Total 905 Balance 995 900 Weight 200 lb 201 lb General: lying in bed in no acute distress Abdomen: soft, mild RLQ tenderness, no voluntary or involuntary guarding or rigidity, ND, positive bowel sounds Active Medications Acetaminophen (Tylenol -) 650 mg PO Q6H PRN PRN Reason: PAIN LEVEL 1-5 Enoxaparin Sodium (Lovenox -) 40 mg SQ DAILY [facility] Sodium Chloride (Normal Saline -) 1,000 mls @ 75 mls/hr IV ASDIR [facility] Last Admin: 11/17/17 06:48 Dose: 75 mls/hr Ketorolac Tromethamine (Toradol Injection -) 30 mg IVPUSH Q8H-IV PRN PRN Reason: PAIN LEVEL 6-10 Stop: 11/21/17 17:59 Last Admin: 11/16/17 20:06 Dose: 30 mg Lisinopril (Prinivil) 15 mg PO DAILY [facility] Morphine Sulfate (Morphine Sulfate) 2 mg IVPUSH Q6H PRN PRN Reason: PAIN LEVEL 6-10 Nicotine (Nicoderm Patch -) 21 mg TD DAILY [facility] Last Admin: 11/16/17 16:53 Dose: 21 mg Pantoprazole Sodium (Protonix Iv) 40 mg IVPUSH DAILY [facility] Laboratory Results - last 24 hr 11/16/17 11/16/17 11/17/17 08:00 08:18 06:20 WBC 4.3 RBC 4.10 Hgb 11.3 L Hct 34.3 L MCV 83.6 MCH 27.5 MCHC 32.9 RDW 13.3 Plt Count 147 D MPV 9.1 Sodium Potassium Chloride Carbon Dioxide Anion Gap BUN Creatinine Creat Clearance w eGFR Random Glucose Calcium Blood Type O POSITIVE O POSITIVE Antibody Screen Negative 11/17/17 06:20 WBC RBC Hgb Hct MCV MCH MCHC RDW Plt Count MPV Sodium 141 Potassium 4.2 Chloride 108 H Carbon Dioxide 26 Anion Gap 7 L BUN 7 Creatinine 0.9 Creat Clearance w eGFR > 60 Random Glucose 86 Calcium 8.0 L Blood Type Antibody Screen ASSESSMENT AND PLAN: 32 yom with HTN, nicotine dependence admitted with acute appendicitis. -Acute uncomplicated non perforated appendicitis s/p Lap appendectomy -HTN -Nicotine dependence Plan: Doing well post op. Advance to regular diet. COntinue lisinopril [address] Flores, no further indication for abx. nicotine patch. DVTPPX Dispo dc today if tolerating diet and no concerns. Plan discussed with patient in detail, all questions answered.
[2017-11-17] MEDS: NICOTINE 21 MG/24 HOURS TOPICAL PATCH TD SCH (09:49)
[2017-11-17] MEDS ORDERED: PANTOPRAZOLE SODIUM 40 MG VIAL IVPUSH SCH (10:00)
[2017-11-17] MEDS ORDERED: LISINOPRIL 10 MG TABLET (FP) PO SCH (10:00)
[2017-11-17] MEDS ORDERED: ENOXAPARIN NA (PORCINE) 40 MG/0.4 ML DISP.SYRIN SQ SCH (10:00)
[2017-11-17] MEDS ORDERED: LISINOPRIL PO SCH (10:00)
--- NOTE | 2017-11-17 10:50 | DS ---
Physical Exam: SUBJECTIVE: Patient seen and examined this AM. Says he is tolerating his diet well and that his pain is well controlled and that he is ambulating well on his own. OBJECTIVE: Vital Signs Period Temp Pulse Resp BP Sys/Nicole Pulse Ox Last 24 Hr 97.6 F-98.6 F 64-97 14-20 116-152/54-92 98-100 PHYSICAL EXAM GENERAL: A&O, no acute distress HEAD: Normocephalic, atraumatic. EYES: PERRL, no scleral icterus EARS, NOSE, THROAT: oropharynx clear without exudates. Moist mucous membranes. NECK: supple without lymphadenopathy LUNGS: CTA b/l, no crackles or wheezes HEART: Regular rate and rhythm, normal S1 and S2 without murmur ABDOMEN: Soft, tender to palpation in right umbilical region and RLQ, no guarding or rebound. normoactive bowel sounds, small surgical site incisions healing well with no drainage or bleeding. MUSCULOSKELETAL: No bony deformities or tenderness. EXTREMITIES: 2+ pulses, warm, well-perfused. No peripheral edema. NEUROLOGICAL: Cranial nerves II-XII grossly intact. Normal speech. PSYCHIATRIC: Cooperative. Good eye contact. Appropriate mood and affect. SKIN: Warm, dry, no rashes or lesions noted LABS Laboratory Results - last 24 hr 11/17/17 11/17/17 06:20 06:20 WBC 4.3 RBC 4.10 Hgb 11.3 L Hct 34.3 L MCV 83.6 MCH 27.5 MCHC 32.9 RDW 13.3 Plt Count 147 D MPV 9.1 Sodium 141 Potassium 4.2 Chloride 108 H Carbon Dioxide 26 Anion Gap 7 L BUN 7 Creatinine 0.9 Creat Clearance w eGFR > 60 Random Glucose 86 Calcium 8.0 L IMAGING: CXR: no acute pathology CT Abdomen: early acute appendicitis HOSPITAL COURSE: Date of Admission:11/16/17 Date of Discharge: 11/17/17 The patient was admitted for abdominal pain and inability to tolerate PO intake for one day. He was found to have early acute appendicitis on CT abdomen, and was seen by general surgery who elected to take him to the OR for appendectomy. On POD 1, he is tolerating his diet well, ambulating without assistance, and his pain is controlled on tylenol. Pt instructed to take tylenol and motrin for pain at home and to follow up with general surgery in 1-2 weeks. Minutes to complete discharge: 40 Discharge Summary Reason For Visit: ACUTE APPENDICITIS Current Active Problems Acute appendicitis (Acute) Condition: Good - Instructions Diet, Activity, Other Instructions: Dr. Pacheco Discharge Instructions Dear DOM GONZALESVADIM ALEXANDER, Post Operative Instructions Physical activity Resume your normal everyday activity as tolerated no heavy lifting or exercise until seen by your surgeon. You may walk unlimited amounts of and climb stairs. You may resume driving the car when you feel safe and comfortable behind the wheel. Wound care If you have a bandage, leave it on, and keep dry for 48 - 72 hours. After that time discard the outer bandage. If there are tapes on the skin under the outer bandage, leave them in place. They will peel off in the next 7 to 10 days. Do Not peel them off. You may shower 2 days after surgery. If there are tapes present on the skin, they can get wet. Diet There are no dietary restrictions. Eat healthy, high-fiber foods. Drink 6 to 8 glasses of liquid each day. This will assist in keeping your bowels are regular. Pain management You may take Tylenol or acetaminophen or Ibuprofen (for example, Motrin, Advil etc.) Any pain prescription medication ordered should be taken as prescribed for moderate to severe pain. Call Dr. Pacheco for any of the following: Severe pain not relieved by medication Fever of 101 or higher Excessive bleeding or drainage on dressing Inability to urinate Call the office at [phone] for a post operative appointment in 7 - 10 days. Referrals: Rafiq Pacheco MD [Staff Physician] - Disposition: HOME - Home Medications Comprehensive Discharge Medication List: Ambulatory Orders Lisinopril 15 mg PO DAILY 11/15/17 Acetaminophen [Tylenol .Regular Strength -] 650 mg PO Q6H PRN tablet 11/17/17 This patient is new to me today: No Emergency Visit: Yes ED Registration Date: 11/16/17 Care time: The patient presented to the Emergency Department on the above date and was hospitalized for further evaluation of their emergent condition. Critical Care patient: No - Discharge Referral Referred to [facility] No
--- NOTE | 2017-11-17 11:29 | PN ---
Progress Note (short form) - Note Progress Note: Attending Surgeon POD#1 Minimal incisional pain; voided and tolerating a diet VSS AF abdo-soft; port site dressings c/d/i; ttp at suprapubic port site; o/w negative WBC-nl IMP: doing well PLAN: D/C to office f/u next week; a/a/u by the patient. Rafiq Pacheco MD FACS
--- NOTE | 2017-11-17 13:18 | OP ---
DATE OF OPERATION: 11/16/2017 PREOPERATIVE DIAGNOSIS: Acute appendicitis. POSTOPERATIVE DIAGNOSIS: Acute appendicitis. PROCEDURE: Laparoscopic appendectomy. SURGEON: Rafiq Pacheco MD REFRIGERATION SYSTEM INSTALLER: Evelin Suazo PA-C ANESTHESIA: General. OPERATIVE FINDINGS: Acute non-perforated appendicitis. The rest of the findings were unremarkable. DESCRIPTION OF PROCEDURE: The patient was placed on the operating table in the supine position, and after the induction of general anesthesia, the patient's abdomen was prepped with ChloraPrep and draped in sterile fashion. Pneumoperitoneum was established above the umbilicus using a Veress needle to an intraabdominal pressure of 15 mmHg. A 5-mm port was then placed above the umbilicus and laparoscopy carried out and the previously noted findings were observed. A 12-mm suprapubic port and left lower quadrant 5-mm port were subsequently placed, and the appendix was identified at the convergence of the 3 tenia of the right colon. It was acutely inflamed and non-perforated. The appendix was grasped, and the mesoappendix serially divided using the LigaSure device. Once the base of the appendix was identified , an Endo YARA purple load stapler was fired across the base. The appendix was then placed in an Endo Catch, and the appendiceal stump and base of the cecum were inspected without evidence of bleeding. Some serous fluid in the pelvis was suctioned out and then the appendix brought out through the 12-mm port, and the rest of the port sites removed under laparoscopic vision, without evidence of bleeding from the port sites. The pneumoperitoneum was evacuated, and all port sites were infiltrated with 0.5 % Marcaine and the defect in the suprapubic port fascia was closed with a single 2 -0 Vicryl [id number] suture. The skin incisions were reapproximated with 4-0 Monocryl in a subcuticular fashion, followed by Steri-Strips and Band-Aid dressings. The procedure was terminated at this point and the patient aroused from general anesthesia and transferred to the postanesthesia care unit in stable condition, awake and alert. ESTIMATED BLOOD LOSS: 5 mL REPLACEMENTS: Crystalloid. DRAINS: None. SPECIMENS: Appendix to Pathology. I, Rafiq Pacheco MD, was physically present in the operating room from the time the patient was placed on the operating table until he was transferred to the postanesthesia care unit in my accompaniment. MD BRANDIE Jackson/[id number] MTDD
--- NOTE | 2017-11-20 17:04 | PATH ---
Surgical Pathology Report Patient Name: DOM MUNOZ [facility]. Rec. #: [id number] /Age/Gender: 1985 (Age: 32) / M Account: [id number] Location: [facility]G Taken: 11/16/2017 Received: 11/16/2017 Reported: 11/20/2017 Physicians: Rafiq Pacheco MD PHYSICIAN EMERGENCY DEPT Specimen(s) Received APPENDIX Clinical History Acute appendicitis Final Diagnosis APPENDIX, APPENDECTOMY: ACUTE APPENDICITIS AND PERIAPPENDICITIS. Electronically Signed Kamar Valdez M.D. Gross Description Received in formalin, labeled "appendix," is a 5.3 cm. in length vermiform appendix with a stapled margin of resection and abundant attached fat. The serosa is morrison-pink with attached exudate. Sectioning reveals a lumen containing morrison pus. The wall of the appendix averages 0.2 cm. in thickness. Special Effects Specialist sections are submitted in one cassette. 11/16/2017 [facility]11/16/2017
== END 2017-11-17 12:04 | disposition home or self-care (01) | DRG 225 ==
LOC: JER 18:46 → JERBED 11-16 00:31 → J8W 11-16 09:15
PROVIDERS: ADMIT Internal Medicine; ATTEND Hospitalist
PROC: 0DTJ4ZZ Resection of Appendix, Percutaneous Endoscopic Approach (ICD-10-PCS; principal; 2017-11-16 11:00)
DX: K35.80 Unspecified acute appendicitis (principal); I10 Essential (primary) hypertension; F17.210 Nicotine dependence, cigarettes, uncomplicated
CPT/HCPCS: 36415; 71046-TC-FY; 74177-TC; 80048; 80053; 81003; 83036; 83690; 83735; 84100; 85025; 85027; 85610; 86850; 86900; 86901; 87086; 88304-TC; 93005; 93010; 94010; 94760; 99285-25; J0131; J7030; Q0162